=== PATIENT | male | born 1960 | race African-American/Black ===

== ENCOUNTER 2019-01-16 16:51 | Inpatient (IN) | payer MEDICARE ==
[2019-01-16] VITALS (10 sets, daily range): BP systolic 64–125; BP diastolic 50–103; BMI 26.9
[~2019-01-16] VITALS: Ht 188 cm; Wt 92.6 kg
--- NOTE | ~2019-01-16 | HP ---
PATIENT: NORIS ROSALES MEDICAL RECORD: [id number] ACCOUNT: [id number] LOCATION:[facility] [id number] : 62 ADMISSION DATE: 01/16/19 PCP: SHERRON INMAN MD HISTORY AND PHYSICAL EXAMINATION ADMITTING DIAGNOSES: 1. Congestive heart failure, chronic systolic dysfunction. 2. Nonischemic cardiomyopathy. 3. Atrial fibrillation, chronic. 4. History of hypertension. HISTORY OF PRESENT ILLNESS: This is a 58-year-old gentleman who is followed by Dr. Blanca with a nonischemic cardiomyopathy, ejection fraction 20% to 25%, who presents to [facility] with fluid overload, atrial fibrillation was now with rapid ventricular response. He was mistaken for acute atrial fibrillation, placed on IV Cordarone. He now is hypotensive with systolic blood pressures in the 90s. He is in a fluid overload state. He had no chest pain or chest discomfort. He has a nonischemic cardiomyopathy as above. He has a history of hypertension for which he is on losartan. He did take his medications today. PHYSICAL EXAMINATION: GENERAL APPEARANCE: Well-nourished, well-developed, appears stated age. Level of distress, comfortable. PSYCHIATRIC: Mental status, alert, normal affect. Orientation, oriented to time, place and person. EYES: Lids and conjunctiva, noninjected. No discharge, no pallor. ENT: Lips, teeth, gums, normal dentition. Oropharynx, no cyanosis, no pallor. NECK: Carotid arteries, bilateral normal upstroke, no bruits, no thrills. JUGULAR VEINS: No jugular venous pressure or distention. CERVICAL LYMPH NODES: Nontender, nonenlarged. THYROID: Not enlarged. Nontender. No nodules. LUNGS: Respiratory effort, unlabored. CHEST: Normal curvature. No thoracic deformity. No chest wall tenderness. Percussion, resonant. Auscultation, clear. No wheezes, no rales, no rhonchi. CARDIOVASCULAR: Precordial exam, nondisplaced. No heaves or pericardial thrills. Rate and rhythm, regular. Heart sounds, normal S1, normal S2. No S3, no gallop, no rub. Systolic murmur, not heard. Diastolic murmur, not heard. EXTREMITIES: No cyanosis, no edema. Peripheral pulses, full and equal in all extremities, except as noted. No bruits appreciated. ABDOMEN: Soft, nondistended. Normal aorta. No bruit. Nontender. No masses. Liver, nontender, no hepatomegaly. Spleen, nontender, no splenomegaly. MUSCULOSKELETAL: No joint tenderness. No joint swelling. No erythema. NEUROLOGICAL: Normal gait, normal strength, normal tone. SKIN: Warm and dry. OVERALL IMPRESSION: Congestive heart failure, chronic systolic dysfunction from cardiomyopathy, nonischemic. His atrial fibrillation is chronic. He certainly does not need IV Cordarone. We will discontinue the IV Cordarone, give him IV digoxin 0.5 mg times 1 loading was 0.25 mg q.4 hours times 4 doses after that for rate slowing. We will put him on dobutamine at 5 mcg as well as Lasix for the fluid overload state. TRANSINT:[id number] Voice Confirmation ID: [id number] DOCUMENT ID: [id number] HISTORY AND PHYSICAL [id number] NORIS ROSALES JEFFREY MD CC: [id number] DICTATION DATE: 01/16/191720 [employer] DIRECTOR: 01/16/19 175 ADM IN [id number] [place] [address]
--- NOTE | ~2019-01-16 | DS ---
PATIENT:NORIS ROSALES :62 MEDICAL RECORD: [id number] DISCHARGE SUMMARY ADMISSION DATE: 01/16/19 DISCHARGE DATE: 01/18/19 DIAGNOSES: 1. Congestive heart failure, chronic systolic dysfunction. 2. Nonischemic cardiomyopathy. 3. Atrial fibrillation, chronic. HOSPITAL COURSE: Mr. Rosales presents with fluid overload and congestive heart failure symptomatology. Underwent diuresis and dobutamine therapy. His symptomatology cleared. He was discharged home with the above medication changes in his medications. He was previously on amiodarone. This was discontinued. He had the institution of Coreg 6.25 b.i.d. to his medical regimen. He was previously on losartan. This is as well discontinued due to low blood pressure. He will continue his Lasix. Will follow up with [facility] in 1 month. TRANSINT:[id number] Voice Confirmation ID: [id number] DOCUMENT ID: [id number] LUIS NICKERSON MD CC: [id number] DICTATION DATE: 01/18/19 0835 ADMITTING INTERVIEWER: 01/19/19 0011 DIS IN 01/18/19 [id number] [place] [address]
--- NOTE | 2019-01-16 17:00 | NUR ---
RECIEVED PT FROM [facility]. BP 64/40. DR NICKERSON CALLED. 1710 DR NICKERSON HERE. DOBUTAMINE ORDERED AND INFUSING.
[2019-01-16] MEDS ORDERED: PREDNISONE5 MG PO (18:03)
[2019-01-16] MEDS ORDERED: FISH OIL 1,0001 CA1 PO (18:05)
[2019-01-16] MEDS ORDERED: VITAMIN D31000 UNI2 PO (18:05)
[2019-01-16] MEDS ORDERED: LASIX40 MG PO (18:06)
[2019-01-16] MEDS ORDERED: COUMADIN5 MG PO (18:06)
[2019-01-16] MEDS ORDERED: AMBIEN10 MG PO ×2 (18:07→18:10)
[2019-01-16] MEDS ORDERED: COZAAR100 MG PO (18:07)
[2019-01-16] MEDS ORDERED: OMEPRAZOLE20 M1 PO (18:08)
[2019-01-16] MEDS ORDERED: IMURAN50 MG PO (18:08)
[2019-01-16] MEDS ORDERED: VITAMIN E200 UNI1 PO (18:09)
[2019-01-17] VITALS (12 sets, daily range): BP systolic 101–140; BP diastolic 53–85; Ht 188 cm; Wt 92.6 kg
--- NOTE | 2019-01-17 04:00 | NUR ---
PT IS AWAKE AND ALERT. NO SIGN OF DISTRESS. 98% ON ROOM AIR, DENIES ANY SOB. HR VARIES FROM 86-115.
--- NOTE | 2019-01-17 07:00 | NUR ---
REPORT RECIEVED, SHIFT ASSESSMENT COMPLETE, PT IS ALERT AND ORIENTED, ALL PPP, VSS, CALL LIGHT IN REACH
[2019-01-17 08:36] LABS: BASOPHILS 0 % (0-2); EOSINOPHILS 0 % (0-7); HEMATOCRIT 40.4 % (42.0-54.0); HEMOGLOBIN 14.2 g/dL (13.5-17.5); IMMATURE GRANULOCYTES 0.6 % (0-5); LYMPHOCYTES 17.6 % (15-50); MCH 33.3 pg (26.0-34.0); MCHC 35.1 g/dL (31.0-37.0); MCV 94.8 fL (80.0-100.0); MEAN PLATELET VOLUME 11.4 fL (7.4-10.4); MONOCYTES 7.3 % (2-11); NEUTROPHILS 74.5 % (40-80); PLATELET COUNT 130 10x3/uL (130-400); RBC 4.26 10x6/uL (4.20-6.10); RDW 13.5 % (11.5-14.5); WBC 5.1 10x3/uL (4.8-10.8)
[2019-01-17 08:46] LABS: INR 2.08 (0.85-1.17); PROTIME 22.7 SECONDS (11.6-15.0)
--- NOTE | 2019-01-17 09:00 | NUR ---
FAMILY AT BEDSIDE, UPDATE GIVEN
[2019-01-17 09:02] LABS: ANION GAP 14.4 mmol/L (8-16); BILIRUBIN - TOTAL 0.99 mg/dL (0.2-1.3); CARBON DIOXIDE 25.7 mmol/L (21.0-32.0); CREATININE - SERUM 1.5 mg/dL (0.6-1.3); POTASSIUM - SERUM 3.1 mmol/L (3.5-5.1); PROTEIN - SERUM 6.7 g/dL (6.4-8.2)
--- NOTE | 2019-01-17 10:51 | NUR ---
RIGHT HAND PIV INFILTRATED AT THIS TIME, DC'D WITH CATH INTACT, [place] CATHETER DC'D AT THIS TIME TIP INTACT
--- NOTE | 2019-01-17 13:00 | NUR ---
SPOKE TO DR. BILLS ABOUT PT MED IMURAN, HOLD FOR NOW UNTIL CLARIFICATION FROM DR. NICKERSON ABOUT MED
--- NOTE | 2019-01-17 13:26 | NUR ---
REPORT CALLED TO [facility] ON MED 2
--- NOTE | 2019-01-17 19:54 | NUR ---
RESUMING PATIENT CARE. PATIENT IS ALERT AND ORIENTED. RESTING COMFORTABLY IN BED. NO S/S OF DISTRESS. NO C/O FE. DENIES NEEDS. CALL LIGHT WITHIN REACH. WILL CPOC.
[2019-01-18] VITALS: BP 104/51
--- NOTE | 2019-01-18 02:58 | NUR ---
PATIENT RESTING COMFORTABLY IN BED. RESPIRATINS ARE EVEN AND UNLABORED. NO S/S OF DISTRESS. NO C/O PAIN. CALL LIGHT WITHIN REACH. WILL CPOC.
[2019-01-18 04:00] VITALS: BP 127/64
[2019-01-18] MEDS ORDERED: COREG6.25 MG PO (08:52)
[2019-01-18 09:23] VITALS: BP 144/87
--- NOTE | 2019-01-18 10:15 | NUR ---
IV AND TELEMETRY DCD. DC PLANS GIVEN. UNDERSTANDING VOICED. ESCORTED TO CAR BY W/C.
== END 2019-01-18 10:15 | disposition home or self-care (01) | DRG 309 ==
LOC: D.M2 16:51 → D.ICU 17:03 → D.M2 17:03
PROVIDERS: ADMIT Internal Medicine Cardiovascular Disease; ATTEND Internal Medicine Cardiovascular Disease
DX: I48.91 Unspecified atrial fibrillation (principal); I50.22 Chronic systolic (congestive) heart failure; I42.9 Cardiomyopathy, unspecified; I11.0 Hypertensive heart disease with heart failure; I95.9 Hypotension, unspecified